=== PATIENT | female | born 1970 | race Hispanic/Latino ===

== ENCOUNTER → 2019-03-09 | Outpatient (CLI) | payer OTHER | END | disposition home or self-care (01) | LOC: RAH 15:58 | PROVIDERS: ATTEND Physical Medicine & Rehabilitation | DX: M54.12 Radiculopathy, cervical region (principal); M54.2 Cervicalgia | CPT/HCPCS: 72052 ==

== ENCOUNTER → 2019-03-22 | Outpatient (CLI) | payer OTHER | END | disposition home or self-care (01) | LOC: RAH 17:34 | PROVIDERS: ATTEND Physical Medicine & Rehabilitation | DX: M47.27 Other spondylosis with radiculopathy, lumbosacral region (principal) | CPT/HCPCS: 72110 ==

== ENCOUNTER → 2019-06-29 | Outpatient (CLI) | payer OTHER | END | disposition home or self-care (01) | LOC: RAH 12:51 | PROVIDERS: ATTEND Physical Medicine & Rehabilitation | DX: M47.27 Other spondylosis with radiculopathy, lumbosacral region (principal); M51.17 Intervertebral disc disorders with radiculopathy, lumbosacral region; M48.07 Spinal stenosis, lumbosacral region | CPT/HCPCS: 72141; 72148 ==

== ENCOUNTER 2022-01-26 22:28 | Emergency (ER) | payer OTHER ==
[~2022-01-26] VITALS: Ht 157.5 cm; Wt 73.0 kg
[2022-01-26] MEDS ORDERED: CEFTRIAXONE 1G VIAL ONE (22:53)
[2022-01-26] MEDS ORDERED: PHENAZOPYRIDINE HCL 200 MG TABLET ONE (22:53)
[2022-01-26] MEDS ORDERED: CEFTRIAXONE 1G VIAL IM ONE (23:00)
[2022-01-26] MEDS ORDERED: PHENAZOPYRIDINE HCL 200 MG TABLET PO ONE (23:00)
[2022-01-26] MEDS ORDERED: CEPH500B PO (23:07)
[2022-01-26 23:18] LABS: APPEARANCE,URINE CLOUDY (CLEAR); BILIRUBIN,URINE MODERATE mg/dL (NEGATIVE); COLOR,URINE RED (YELLOW); GLUCOSE, URINE (UA) NEGATIVE (NEGATIVE); KETONES,URINE 15 mg/dL (NEGATIVE); LEUKOCYTE ESTERASE ,URINE MODERATE Leu/uL (NEGATIVE); NITRATE,URINE POSITIVE (NEGATIVE); OCCULT BLOOD,URINE LARGE (NEGATIVE); PH,URINE 5.5 (5.0-8.0); PROTEIN,URINE >=300 mg/dL (NEGATIVE)
[2022-01-26 23:20] LABS: RBC,URINE 26-50 /HPF (0-1)
[2022-01-26 23:21] LABS: BACTERIA,URINE Few /HPF (None Seen); MUCUS,URINE Rare LPF (None Seen); SQUAMOUS EPITHELIAL CELL,UR Rare /HPF (0-2)
[2022-01-26 23:37] VITALS: BP 135/79
== END 2022-01-26 23:44 | disposition home or self-care (01) ==
LOC: EDH 22:28
DX: N39.0 Urinary tract infection, site not specified (principal)
CPT/HCPCS: 99283; 87088; 81001; 96372; J0696